=== PATIENT | male | born 1985 | race Caucasian/White ===

== ENCOUNTER → 2018-01-10 | Outpatient (CLI) | payer MEDICARE ==
--- NOTE | 2018-01-10 12:49 | RAD ---
EXAM DESCRIPTION: Shoulder,Left 2 or More Views CLINICAL HISTORY: 32 years Male, PAIN IN LEFT SHOULDER COMPARISON: None available. FINDINGS: The visualized bones are well-mineralized.No acute fracture or dislocation. The soft tissues appear grossly unremarkable. IMPRESSION: Grossly normal radiographs of the left shoulder. Electronically signed by: Shameka Alas MD 01/10/2018 12:47 PM CDT
--- NOTE | 2018-01-10 12:52 | RAD ---
EXAM DESCRIPTION: Elbow,Left 3 Views CLINICAL HISTORY: 32 years Male, PAIN IN LEFT ELBOW COMPARISON: None available. FINDINGS: The visualized bones are well-mineralized.No acute fracture or dislocation. Mild soft tissue swelling along the posterior aspect of the olecranon could secondary to bursitis. IMPRESSION: Mild soft tissue swelling along the posterior aspect of the olecranon could secondary to bursitis. Otherwise normal radiographs of the left elbow. Electronically signed by: Shameka Alas MD 01/10/2018 12:50 PM CDT
--- NOTE | 2018-01-10 12:55 | RAD ---
EXAM DESCRIPTION: Wrist,Left 3 Views CLINICAL HISTORY: 32 years Male, PAIN IN LEFT WRIST COMPARISON: None available. FINDINGS: The visualized bones are well-mineralized.No acute fracture or dislocation. Loss of the normal carpal arcs, limiting visualization of the carpal bones. The soft tissues appear grossly unremarkable. IMPRESSION: Loss of the normal carpal arcs, limiting visualization of the carpal bones. CT can be performed for further evaluation if clinically concerned. Electronically signed by: Shameka Alas MD 01/10/2018 12:53 PM CDT
== END ==
LOC: RAD 08:33
PROVIDERS: ATTEND Orthopaedic Surgery
DX: M25.512 Pain in left shoulder (principal); M25.522 Pain in left elbow; M25.532 Pain in left wrist